=== PATIENT | female | born 1955 | race African-American/Black ===

== ENCOUNTER 2019-03-23 20:57 | Emergency (ER) | payer SELFPAY | END 2019-03-23 21:20 | disposition left against medical advice (07) | LOC: EMS 20:58 | DX: Z53.21 Procedure and treatment not carried out due to patient leaving prior to being seen by health care provider (principal) ==

== ENCOUNTER 2024-09-12 21:14 | Inpatient (IN) | payer OTHER ==
[~2024-09-12] VITALS: Ht 172.7 cm; Wt 183.5 kg
[2024-09-12 21:20] VITALS: PULSE 102; RESP 38; O2SAT 98
[2024-09-12 21:35] LABS: BASOPHILS % (AUTO) 0.5 % (0.0-2.0); EOSINOPHILS % (AUTO) 1.4 % (1.0-6.0); HEMATOCRIT 39.8 % (36-46); HEMOGLOBIN 12.1 g/dL (12.0-16.0); LYMPHOCYTES # (AUTO) 1.2 K/uL (1.0-4.8); LYMPHOCYTES % (AUTO) 7.5 % (22.0-44.0); MEAN CORPUSCULAR HEMOGLOBIN 22.4 pg (26.0-34.0); MEAN CORPUSCULAR HGB CONC 30.4 G/dL (31.0-37.0); MEAN CORPUSCULAR VOLUME 74 fL (80-100); MONOCYTES # (AUTO) 0.4 K/uL (0.1-1.0); MONOCYTES % (AUTO) 2.6 % (2.0-9.0); NEUTROPHILS # (AUTO) 13.8 K/uL (1.8-7.7); PLATELET COUNT (AUTO) 379 K/uL (150-450); RED BLOOD CELL COUNT(AUTO) 5.39 MIL/uL (4.00-5.20); WHITE BLOOD COUNT (AUTO) 15.7 K/uL (4.5-11.0)
[2024-09-12 21:38] LABS: ANION GAP 14 mmol/L (8-16); CALCIUM, TOTAL 7.4 mg/dL (8.8-10.5); CARBON DIOXIDE 22 mmol/L (22-29); CHLORIDE 99 mmol/L (98-107); CREATININE 11.01 mg/dL (0.60-1.30); GLOMERULAR FILTR. RATE CALC 4 mL/min (>60); GLUCOSE,RANDOM 163 mg/dL (70-110); SODIUM SERUM 135 mmol/L (136-145); UREA NITROGEN, BLOOD 63 mg/dL (7-18)
[2024-09-12 21:40] LABS: GLUCOMETER DEV NAME(LOC) ER.7; GLUCOSE,POINT OF CARE 158 MG/DL (70-110)
[2024-09-12 21:41] LABS: POTASSIUM 6.4 mmol/L (3.5-5.1)
[2024-09-12 21:48] LABS: TROPONIN I-HIGH SENSITIVITY 35 ng/L (<51)
[2024-09-12 21:50] LABS: PLATELET MORPHOLOGY COMMENT LARGE PLTS PRESENT; RBC MORPHOLOGY COMMENT ABNORMAL RBC MORPH
[2024-09-12 21:51] LABS: PROTHROMBIN TIME 11.4 SEC (9.4-11.6)
[2024-09-12 21:59] LABS: ALBUMIN 3.3 g/dL (3.4-5.0); BILIRUBIN,DIRECT 0.1 mg/dL (0.00-0.20); BILIRUBIN,TOTAL 0.5 mg/dL (0.1-1.0); TOTAL PROTEIN, SERUM 8.3 g/dL (6.4-8.2)
[2024-09-12] MEDS: CALCIUM GLUCONATE 100 MG/ML 10 ML IVP ONE (22:04)
[2024-09-12] MEDS: SODIUM BICARBONATE [ADULT] 8.4% 50 MEQ/50 ML SYRINGE IVP ONE (22:06)
[2024-09-12] MEDS: DEXTROSE 50%-WATER 25 GM/50 ML SYRINGE IVP ONE ×2 (22:06→23:47)
[2024-09-12] MEDS: SODIUM ZIRCONIUM CYCLOSILICATE 10 GM POWDER PACKET PO ONE (22:06)
[2024-09-12] MEDS: FUROSEMIDE 40 MG/4 ML VIAL IVP ONE (22:07)
[2024-09-12] MEDS: INSULIN REGULAR, HUMAN 100 UNITS/ML IVP ONE (22:08)
[2024-09-12 22:12] LABS: COVID AG,FIA SOURCE NASAL SWAB
[2024-09-12 22:31] LABS: SARS-COV2 (COVID) ANTIGEN,FIA Negative (Negative)
[2024-09-12] MEDS ORDERED: ZOLPIDEM TARTRATE 5 MG TABLET PO PRN (23:45)
[2024-09-12] MEDS ORDERED: MAGNESIUM HYDROXIDE SUSPENSION 30 ML UDCUP PO PRN (23:45)
[2024-09-12] MEDS ORDERED: ALBUTEROL SULFATE 2.5 MG/0.5 ML NEB SOLUTION NEB PRN (23:45)
[2024-09-12] MEDS ORDERED: IPRATROPIUM BROMIDE 0.5 MG/2.5 ML NEB SOLUTION NEB PRN (23:45)
[2024-09-12] MEDS ORDERED: BISACODYL 10 MG RECTAL RECTAL SUPPOSITORY PR PRN (23:45)
[2024-09-12] MEDS ORDERED: ONDANSETRON HCL 4 MG/2 ML VIAL IVP PRN (23:45)
[2024-09-12 23:56] LABS: GLUCOMETER DEV NAME(LOC) ER.7; GLUCOSE,POINT OF CARE 55 MG/DL (70-110)
[2024-09-13] VITALS (13 sets, daily range): BP systolic 111–186; BP diastolic 69–101; PULSE 75–122; RESP 17–29; TEMP 98–103.1; O2SAT 95–100
[2024-09-13] MEDS ORDERED: CINA30TA5 PO (00:09)
[2024-09-13] MEDS ORDERED: NITR0.4T50 SL (00:09)
[2024-09-13] MEDS ORDERED: PANT40TA54 PO (00:09)
[2024-09-13] MEDS ORDERED: NIFE-40 PO (00:09)
[2024-09-13] MEDS ORDERED: CLOP75TA32 PO (00:09)
[2024-09-13] MEDS ORDERED: METO-391 PO (00:09)
[2024-09-13] MEDS ORDERED: ISOS30TA92 PO (00:09)
[2024-09-13] MEDS ORDERED: DONE-51 PO (00:09)
[2024-09-13] MEDS ORDERED: ATOR-2 PO (00:09)
[2024-09-13] MEDS ORDERED: PREG25CA19 PO (00:09)
[2024-09-13] MEDS ORDERED: METO-408 PO (00:09)
[2024-09-13] MEDS ORDERED: EZET10TA57 PO (00:09)
[2024-09-13] MEDS ORDERED: DOXE50CA4 PO (00:09)
[2024-09-13 00:26] LABS: GLUCOMETER DEV NAME(LOC) ER.7; GLUCOSE,POINT OF CARE 161 MG/DL (70-110)
[2024-09-13] MEDS: CefTRIAXone SODIUM 2 GM in DEXTROSE 5%-WATER 50 ML IV SCH (00:27)
[2024-09-13] MEDS: FUROSEMIDE 20 MG TABLET PO ONE (00:27)
[2024-09-13] MEDS: HEPARIN SODIUM,PORCINE 5,000 UNITS/ML VIAL SQ SCH (00:28)
[2024-09-13] MEDS: LORazepam 2 MG/ML VIAL IVP ONE ×2 (03:29→05:31)
[2024-09-13] MEDS: MORPHINE SULFATE 2 MG/ML SYRINGE IVP PRN (06:13)
[2024-09-13] MEDS: HydrALAZINE HCL 20 MG/ML VIAL IVP ONE (06:55)
[2024-09-13 08:11] LABS: CALCIUM, TOTAL 8.9 mg/dL (8.8-10.5); CREATININE 8.04 mg/dL (0.60-1.30); POTASSIUM 5.2 mmol/L (3.5-5.1)
[2024-09-13] MEDS ORDERED: EZETIMIBE 10 MG TABLET PO SCH (09:00)
[2024-09-13] MEDS ORDERED: CINACALCET HCL 30 MG TABLET PO SCH (09:00)
[2024-09-13] MEDS ORDERED: PANTOPRAZOLE SODIUM 40 MG DR TABLET PO SCH (09:00)
[2024-09-13] MEDS ORDERED: METOPROLOL SUCCINATE 25 MG ER TABLET PO SCH ×2 (09:00)
[2024-09-13] MEDS ORDERED: NIFEdipine 30 MG ER TABLET PO SCH (09:00)
[2024-09-13] MEDS ORDERED: PREGABALIN 25 MG CAPSULE PO SCH (09:00)
[2024-09-13] MEDS ORDERED: METOPROLOL SUCCINATE 50 MG ER TABLET PO SCH (09:00)
[2024-09-13] MEDS: PANTOPRAZOLE SODIUM 40 MG DR TABLET PO SCH (09:29)
[2024-09-13] MEDS: ACETAMINOPHEN 325 MG TABLET PO PRN (09:30)
[2024-09-13] MEDS: PREGABALIN 25 MG CAPSULE PO SCH (09:31)
[2024-09-13] MEDS: ISOSORBIDE MONONITRATE 30 MG ER TABLET PO SCH (09:56)
[2024-09-13] MEDS: NIFEdipine 30 MG ER TABLET PO SCH (09:56)
[2024-09-13] MEDS: EZETIMIBE 10 MG TABLET PO SCH (09:57)
[2024-09-13] MEDS: DONEPEZIL HCL 10 MG TABLET PO SCH (09:57)
[2024-09-13] MEDS: CINACALCET HCL 30 MG TABLET PO SCH (09:57)
[2024-09-13] MEDS: CLOPIDOGREL BISULFATE 75 MG TABLET PO SCH (10:36)
[2024-09-13] MEDS: METOPROLOL SUCCINATE 50 MG ER TABLET PO SCH (11:37)
[2024-09-13] MEDS: METOPROLOL SUCCINATE 25 MG ER TABLET PO SCH (11:39)
[2024-09-13] MEDS ORDERED: LIDOCAINE/PF 1% 2 ML VIAL ONE (12:00)
[2024-09-13] MEDS ORDERED: HydrALAZINE HCL 20 MG/ML VIAL IVP SCH (12:00)
[2024-09-13] MEDS ORDERED: HydrALAZINE HCL 20 MG/ML VIAL IVP PRN (12:15)
[2024-09-13] MEDS ORDERED: SODIUM CHLORIDE 0.9% 250 ML IV ONE (16:38)
[2024-09-13] MEDS: NITROGLYCERIN 0.4 MG SUBLINGUAL TABLET #25 SL PRN (18:02)
[2024-09-13 20:39] LABS: LACTIC ACID 1.2 mmol/L (0.4-2.0)
[2024-09-13] MEDS: DOXEPIN HCL 50 MG CAPSULE PO SCH (20:46)
[2024-09-13 20:51] LABS: GLUCOMETER DEV NAME(LOC) ICU.S6; GLUCOSE,POINT OF CARE 103 MG/DL (70-110)
[2024-09-13] MEDS ORDERED: DOXEPIN HCL 50 MG CAPSULE PO SCH (21:00)
[2024-09-14] VITALS: BP 145/78; PULSE 76; RESP 18; TEMP 98.7; O2SAT 97
[2024-09-14] MEDS: ETHYL ALCOHOL 62% ANTISEPTIC NASAL SANITIZER 0.6 ML AMPUL NASAL SCH (00:03)
[2024-09-14] MEDS ORDERED: SODIUM CHLORIDE 0.9% 250 ML IV ONE (00:13)
[2024-09-14 03:45] LABS: APPEARANCE,URINE CLEAR (CLEAR); BILIRUBIN,URINE NEGATIVE (NEGATIVE); COLOR,URINE LIGHT YELLOW (YELLOW); GLUCOSE, URINE (UA) 70-100 mg/dL (NEGATIVE); KETONES,URINE NEGATIVE (NEGATIVE); LEUKOCYTE ESTERASE ,URINE NEGATIVE (NEGATIVE); NITRATE,URINE NEGATIVE (NEGATIVE); OCCULT BLOOD,URINE SMALL (NEGATIVE); PROTEIN,URINE 300-600,SEE CONFIRM mg/dL (NEGATIVE); UROBILINOGEN,URINE <=1.0 mg/dL (<=1.0)
[2024-09-14 04:00] VITALS: PULSE 90
[2024-09-14 04:39] LABS: SULFOSALICYLIC ACID,URINE 2+ (Negative)
[2024-09-14 04:40] LABS: BACTERIA,URINE None Seen /HPF (None Seen); RBC,URINE 0-2 /HPF (0-2); SQUAMOUS EPITHELIAL CELL,UR Rare /LPF (None Seen); WBC,URINE 0-2 /HPF (0-5)
[2024-09-14 06:10] LABS: BASOPHILS % (AUTO) 0.5 % (0.0-2.0); EOSINOPHILS % (AUTO) 0.4 % (1.0-6.0); HEMATOCRIT 36.1 % (36-46); HEMOGLOBIN 11.3 g/dL (12.0-16.0); LYMPHOCYTES # (AUTO) 0.6 K/uL (1.0-4.8); LYMPHOCYTES % (AUTO) 5.7 % (22.0-44.0); MEAN CORPUSCULAR HEMOGLOBIN 22.7 pg (26.0-34.0); MEAN CORPUSCULAR HGB CONC 31.2 G/dL (31.0-37.0); MEAN CORPUSCULAR VOLUME 73 fL (80-100); MONOCYTES # (AUTO) 0.6 K/uL (0.1-1.0); MONOCYTES % (AUTO) 5.3 % (2.0-9.0); NEUTROPHILS # (AUTO) 9.7 K/uL (1.8-7.7); PLATELET COUNT (AUTO) 315 K/uL (150-450); RED BLOOD CELL COUNT(AUTO) 4.97 MIL/uL (4.00-5.20); RED CELL DISTRIBUTION WIDTH 22.7 % (11.5-14.5)
[2024-09-14 06:25] LABS: CALCIUM, TOTAL 8.2 mg/dL (8.8-10.5); CREATININE 9.44 mg/dL (0.60-1.30); POTASSIUM 5.4 mmol/L (3.5-5.1)
[2024-09-14 06:31] LABS: MAGNESIUM 2.5 mg/dL (1.80-2.40); PHOSPHORUS 7.8 mg/dL (2.5-4.9)
[2024-09-14 06:51] LABS: NEUTROPHILS % (AUTO) 88.1 % (40.0-70.0)
[2024-09-14 08:00] VITALS: BP 155/80; PULSE 94; RESP 25; TEMP 98.5; O2SAT 89
[2024-09-14] MEDS: SODIUM ZIRCONIUM CYCLOSILICATE 10 GM POWDER PACKET PO ONE (09:14)
[2024-09-14] MEDS: METOPROLOL SUCCINATE 25 MG ER TABLET PO SCH (09:16)
[2024-09-14 09:29] LABS: RBC MORPHOLOGY COMMENT ABNORMAL RBC MORPH
[2024-09-14 12:00] VITALS: BP 153/75; PULSE 95; RESP 26; TEMP 98.7; O2SAT 93
[2024-09-14] MEDS: SEVELAMER CARBONATE 800 MG TABLET PO SCH (12:21)
[2024-09-14 15:15] LABS: GLUCOMETER DEV NAME(LOC) ICUN.5; GLUCOSE,POINT OF CARE 107 MG/DL (70-110)
[2024-09-14 17:24] VITALS: BP 144/71; PULSE 88; RESP 22; TEMP 98.4; O2SAT 92
[2024-09-14] MEDS ORDERED: DiphenhydrAMINE HCL 50 MG/ML VIAL IM ONE (18:15)
[2024-09-14] MEDS ORDERED: LORazepam 2 MG/ML VIAL IM ONE (18:15)
[2024-09-14] MEDS ORDERED: haloperidoL LACTATE 5 MG/ML VIAL IM ONE (18:15)
[2024-09-14 21:23] VITALS: BP 141/69; PULSE 91; RESP 18; TEMP 100; O2SAT 95
[2024-09-14 22:10] LABS: GLUCOMETER DEV NAME(LOC) 5N.1D; GLUCOSE,POINT OF CARE 126 MG/DL (70-110)
[2024-09-15] VITALS (9 sets, daily range): BP systolic 105–154; BP diastolic 64–85; PULSE 80–94; RESP 18–21; TEMP 97.9–98.9; O2SAT 94–95
[2024-09-15] MEDS ORDERED: SODIUM CHLORIDE 0.9% 250 ML IV ONE (00:05)
[2024-09-15 06:46] LABS: BASOPHILS % (AUTO) 0.7 % (0.0-2.0); EOSINOPHILS % (AUTO) 0.4 % (1.0-6.0); HEMATOCRIT 36.5 % (36-46); HEMOGLOBIN 11.7 g/dL (12.0-16.0); LYMPHOCYTES # (AUTO) 1.2 K/uL (1.0-4.8); LYMPHOCYTES % (AUTO) 13.5 % (22.0-44.0); MEAN CORPUSCULAR HEMOGLOBIN 23.1 pg (26.0-34.0); MEAN CORPUSCULAR VOLUME 72 fL (80-100); MONOCYTES # (AUTO) 0.7 K/uL (0.1-1.0); MONOCYTES % (AUTO) 7.7 % (2.0-9.0); NEUTROPHILS # (AUTO) 6.8 K/uL (1.8-7.7); NEUTROPHILS % (AUTO) 77.7 % (40.0-70.0); PLATELET COUNT (AUTO) 316 K/uL (150-450); RED BLOOD CELL COUNT(AUTO) 5.06 MIL/uL (4.00-5.20); RED CELL DISTRIBUTION WIDTH 23.2 % (11.5-14.5); WHITE BLOOD COUNT (AUTO) 8.8 K/uL (4.5-11.0)
[2024-09-15 06:53] LABS: CALCIUM, TOTAL 7.8 mg/dL (8.8-10.5); CREATININE 11.62 mg/dL (0.60-1.30); POTASSIUM 5.1 mmol/L (3.5-5.1)
[2024-09-15] MEDS: CINACALCET HCL 30 MG TABLET PO SCH (08:00)
[2024-09-15] MEDS ORDERED: SODIUM CHLORIDE 0.9% 1,000 ML ONE (08:01)
[2024-09-15 08:11] LABS: RBC MORPHOLOGY COMMENT ABNORMAL RBC MORPH
[2024-09-15 09:06] LABS: GLUCOMETER DEV NAME(LOC) 5N.2C; GLUCOSE,POINT OF CARE 106 MG/DL (70-110)
[2024-09-15] MEDS: HYDROCODONE/ACETAMINOPHEN 5-325 MG TABLET PO PRN (12:14)
[2024-09-15] MEDS ORDERED: LIDOCAINE/PF 1% 2 ML VIAL ID PRN (13:30)
[2024-09-15] MEDS ORDERED: METO25XL PO (13:58)
[2024-09-15] MEDS ORDERED: SEVE800T7 PO (13:58)
[2024-09-15] MEDS ORDERED: DOXE50CA70 PO (13:58)
== END 2024-09-15 15:30 | disposition home or self-care (01) | DRG 189 ==
LOC: EMS 21:14 → EDH 09-13 00:59 → UNDODISIN 09-13 07:35 → ICU 09-13 09:05 → 5S 09-14 15:40
PROVIDERS: ADMIT Hospitalist; ATTEND Hospitalist
PROC: 5A1D70Z Performance of Urinary Filtration, Intermittent, Less than 6 Hours Per Day (ICD-10-PCS; principal; 2024-09-13)
PROC: 5A1D70Z Performance of Urinary Filtration, Intermittent, Less than 6 Hours Per Day (ICD-10-PCS; 2024-09-15)
DX: J96.01 Acute respiratory failure with hypoxia (principal); N18.6 End stage renal disease; G93.41 Metabolic encephalopathy; E44.0 Moderate protein-calorie malnutrition; I12.0 Hypertensive chronic kidney disease with stage 5 chronic kidney disease or end stage renal disease; Z68.44 Body mass index [BMI] 60.0-69.9, adult; Z20.822 Contact with and (suspected) exposure to COVID-19; F32.A Depression, unspecified; E11.22 Type 2 diabetes mellitus with diabetic chronic kidney disease; I16.0 Hypertensive urgency; E87.5 Hyperkalemia; E87.70 Fluid overload, unspecified; F03.A0 Unspecified dementia, mild, without behavioral disturbance, psychotic disturbance, mood disturbance, and anxiety; Z79.899 Other long term (current) drug therapy; Z87.891 Personal history of nicotine dependence; Z99.2 Dependence on renal dialysis
CPT/HCPCS: 71045; 80048; 80076; 81001; 81002; 82550; 82962; 83605; 83735; 83880; 84100; 84484; 85025; 85610; 85730; 87040; 87081; 87340; 90935; 93005; 94660; 99291; G0378; J0360; J0610; J0696; J1644; J1815; J1940; J2060; J2270; J3490; J7030; J7050; J7060; 36415-L1; 36415-TC

== ENCOUNTER 2024-09-24 00:46 | Inpatient (IN) | payer OTHER ==
[~2024-09-24] VITALS: Ht 172.7 cm; Wt 83.2 kg
[~2024-09-24 00:46] MED LIST: ATOR-2 PO; CINA30TA5 PO; CLOP75TA32 PO; DONE-51 PO; DOXE50CA4 PO; DOXE50CA70 PO; EZET10TA57 PO; ISOS30TA92 PO; METO-391 PO; METO25XL PO; NIFE-40 PO; NITR0.4T50 SL; PANT40TA54 PO; PREG25CA19 PO; SEVE800T7 PO
[2024-09-24 01:05] VITALS: PULSE 78; RESP 23; O2SAT 100
[2024-09-24 01:12] VITALS: TEMP 97.8
[2024-09-24 01:18] LABS: BASOPHILS % (AUTO) 0.9 % (0.0-2.0); EOSINOPHILS % (AUTO) 2.4 % (1.0-6.0); HEMATOCRIT 35.8 % (36-46); HEMOGLOBIN 11.3 g/dL (12.0-16.0); LYMPHOCYTES # (AUTO) 1.9 K/uL (1.0-4.8); LYMPHOCYTES % (AUTO) 19.8 % (22.0-44.0); MEAN CORPUSCULAR HEMOGLOBIN 22.8 pg (26.0-34.0); MEAN CORPUSCULAR HGB CONC 31.6 G/dL (31.0-37.0); MEAN CORPUSCULAR VOLUME 72 fL (80-100); MONOCYTES # (AUTO) 0.6 K/uL (0.1-1.0); MONOCYTES % (AUTO) 6.7 % (2.0-9.0); NEUTROPHILS # (AUTO) 6.7 K/uL (1.8-7.7); NEUTROPHILS % (AUTO) 70.2 % (40.0-70.0); PLATELET COUNT (AUTO) 362 K/uL (150-450); RED BLOOD CELL COUNT(AUTO) 4.97 MIL/uL (4.00-5.20); RED CELL DISTRIBUTION WIDTH 22.4 % (11.5-14.5); WHITE BLOOD COUNT (AUTO) 9.5 K/uL (4.5-11.0)
[2024-09-24 01:23] LABS: ANION GAP 6 mmol/L (8-16); CALCIUM, TOTAL 7.5 mg/dL (8.8-10.5); CARBON DIOXIDE 30 mmol/L (22-29); CHLORIDE 100 mmol/L (98-107); CREATININE 9.98 mg/dL (0.60-1.30); GLOMERULAR FILTR. RATE CALC 5 mL/min (>60); GLUCOSE,RANDOM 183 mg/dL (70-110); POTASSIUM 4.2 mmol/L (3.5-5.1); SODIUM SERUM 136 mmol/L (136-145); UREA NITROGEN, BLOOD 54 mg/dL (7-18)
[2024-09-24 01:29] LABS: CREATINE KINASE, TOTAL ONLY 89 U/L (26-192); PROTHROMBIN TIME 10.8 SEC (9.4-11.6)
[2024-09-24 01:33] LABS: TROPONIN I-HIGH SENSITIVITY 330 ng/L (<51)
[2024-09-24 01:35] LABS: GLUCOMETER DEV NAME(LOC) ERT.7; GLUCOSE,POINT OF CARE 188 MG/DL (70-110)
[2024-09-24 01:44] LABS: B-TYPE NATRIURETIC PEPTIDE 2830 pg/mL (0-100)
[2024-09-24 01:48] LABS: RBC MORPHOLOGY COMMENT ABNORMAL RBC MORPH
[2024-09-24] MEDS: FUROSEMIDE 40 MG/4 ML VIAL IVP ONE (02:51)
[2024-09-24 03:41] LABS: TROPONIN I-HIGH SENSITIVITY 369 ng/L (<51)
[2024-09-24] MEDS: NITROGLYCERIN 2% (1 GM=INCH) OINTMENT PACKET TP ONE (05:09)
[2024-09-24] MEDS ORDERED: ONDANSETRON HCL 4 MG/2 ML VIAL IVP PRN (05:30)
[2024-09-24] MEDS ORDERED: ACETAMINOPHEN 325 MG TABLET PO PRN (05:30)
[2024-09-24 05:55] LABS: TROPONIN I-HIGH SENSITIVITY 354 ng/L (<51)
[2024-09-24] MEDS: FUROSEMIDE 20 MG/2 ML VIAL IVP ONE (06:21)
[2024-09-24] MEDS: HEPARIN SODIUM,PORCINE 5,000 UNITS/ML VIAL SQ SCH (07:37)
[2024-09-24] MEDS: HydrALAZINE HCL 20 MG/ML VIAL IVP PRN (07:37)
[2024-09-24] MEDS: ASPIRIN 81 MG CHEWABLE TABLET PO SCH (08:18)
[2024-09-24] MEDS: MORPHINE SULFATE 2 MG/ML SYRINGE IVP PRN (08:18)
[2024-09-24] MEDS: AmLODIPine BESYLATE 5 MG TABLET PO SCH (08:20)
[2024-09-24] MEDS: DOCUSATE SODIUM 100 MG CAPSULE PO SCH (08:21)
[2024-09-24] MEDS: METOPROLOL TARTRATE 25 MG TABLET PO SCH (08:21)
[2024-09-24] MEDS: FAMOTIDINE 20 MG TABLET PO SCH (08:22)
[2024-09-24] MEDS: ATORVASTATIN CALCIUM 20 MG TABLET PO SCH (08:22)
[2024-09-24 08:34] LABS: TROPONIN I-HIGH SENSITIVITY 327 ng/L (<51)
[2024-09-24] MEDS: MORPHINE SULFATE 2 MG/ML SYRINGE IVP ONE (09:02)
[2024-09-24] MEDS ORDERED: IOHEXOL 350 MG/ML 100 ML VIAL ONE (09:41)
[2024-09-24] MEDS ORDERED: SODIUM CHLORIDE 0.9% 100 ML ONE (09:41)
[2024-09-24] MEDS ORDERED: HydrALAZINE HCL 20 MG/ML VIAL IVP PRN (10:30)
[2024-09-24] MEDS: AmLODIPine BESYLATE 5 MG TABLET PO ONE (10:42)
[2024-09-24] MEDS: NITROGLYCERIN 0.4 MG SUBLINGUAL TABLET #25 SL PRN (10:43)
[2024-09-24 10:50] VITALS: PULSE 102; RESP 29; O2SAT 100
[2024-09-24 11:01] LABS: ABG PCO2 30 mmHg (32.0-45.0); ABG PH 7.492 (7.350-7.450); ALLEN TEST, BLOOD GAS Positive; PO2, ARTERIAL BG 75.5 mmHg (83.0-108.0); SITE, BLOOD GAS LFT RADIAL; SOURCE, BLOOD GAS ARTERIAL; TEMPERATURE, FAHRENHEIT, BG 97.8 FAHREN (96.0-98.6)
[2024-09-24 11:02] LABS: ABG BASE EXCESS -0.7 mmol/L (-2.0-3.0); ABG CARBOXYHEMOGLOBIN 0.9 % (0.5-1.5); ABG HCO3 24.6 mmol/L (21.0-28.0); ABG METHEMOGLOBIN 0.5 % (0.0-1.5); ABG OXYGEN CONTENT 17.5 mL/dL (15.0-23.0); ABG OXYHEMOGLOBIN 95.3 % (94.0-98.0); ABG TOTAL HEMOGLOBIN 13.2 G/dL (12.0-16.0)
[2024-09-24 11:05] LABS: ABG A-A DIFF O2 247.6 mmHg (10-20.0); ABG OXYGEN SATURATION 75.5 % (94.0-98.0)
[2024-09-24 11:06] LABS: O2 DEVICE,BLOOD GAS BIPAP (ROOM AIR); VENT MODE, BG NIPPV (ROOM AIR)
[2024-09-24] MEDS ORDERED: MORPHINE SULFATE 2 MG/ML SYRINGE IVP PRN (12:15)
[2024-09-24 19:17] VITALS: BP 160/68; PULSE 84; RESP 18; O2SAT 99
== END 2024-09-24 20:19 | disposition left against medical advice (07) | DRG 280 ==
LOC: EMS 00:46 → EDH 05:27
PROVIDERS: ADMIT Internal Medicine; ATTEND Internal Medicine
PROC: 5A09357 Assistance with Respiratory Ventilation, Less than 24 Consecutive Hours, Continuous Positive Airway Pressure (ICD-10-PCS; principal; 2024-09-24)
DX: I16.1 Hypertensive emergency (principal); J96.01 Acute respiratory failure with hypoxia; I21.A1 Myocardial infarction type 2; N18.6 End stage renal disease; I50.22 Chronic systolic (congestive) heart failure; J91.8 Pleural effusion in other conditions classified elsewhere; D63.1 Anemia in chronic kidney disease; F03.A0 Unspecified dementia, mild, without behavioral disturbance, psychotic disturbance, mood disturbance, and anxiety; E78.5 Hyperlipidemia, unspecified; E11.22 Type 2 diabetes mellitus with diabetic chronic kidney disease; I13.2 Hypertensive heart and chronic kidney disease with heart failure and with stage 5 chronic kidney disease, or end stage renal disease; F32.A Depression, unspecified; I25.10 Atherosclerotic heart disease of native coronary artery without angina pectoris; Z53.29 Procedure and treatment not carried out because of patient's decision for other reasons; Z87.891 Personal history of nicotine dependence; Z90.710 Acquired absence of both cervix and uterus; Z91.158 Patient's noncompliance with renal dialysis for other reason; Z99.2 Dependence on renal dialysis
CPT/HCPCS: 71045; 71275; 80048; 82550; 82805; 82962; 83880; 84484; 85025; 85610; 85730; 93005; 93306; 94660; 96374; 99291; J0360; J1644; J1940; J2270; J7050; 36415-L1; 36415-TC